=== PATIENT | male | born 1960 | race African-American/Black ===

== ENCOUNTER 2017-05-09 17:09 | Emergency (ER) | payer BC, MEDICAID ==
[~2017-05-09] VITALS: Ht 193 cm; Wt 146.0 kg
[2017-05-09] MEDS ORDERED: CEFTRIAXONE SODIUM 1 G/VIAL IM ONE (22:15)
[2017-05-09] MEDS ORDERED: PREDNISONE 20MG TABLET PO ONE (22:15)
[2017-05-09] MEDS ORDERED: LIDOCAINE HCL 1% 20ML VIAL (Pyxis) INJ INFIL ONE (23:00)
[2017-05-09 23:37] VITALS: BP 174/96
[2017-05-09] MEDS ORDERED: IBUPROFEN 600MG TABLET PO ONE (23:45)
== END 2017-05-09 23:46 | disposition home or self-care (01) ==
LOC: ER 21:19
DX: L03.213 Periorbital cellulitis (principal); H10.89 Other conjunctivitis; A49.9 Bacterial infection, unspecified
CPT/HCPCS: 70486; 96372; 99284; J0696; J3490; J7512